=== PATIENT | male | born 1970 | race American Indian/Alaskan Native ===

== ENCOUNTER 2017-05-15 02:39 | Emergency (ER) | payer OTHER ==
[2017-05-15 02:58] VITALS: BP 141/81
--- NOTE | 2017-05-15 03:55 | XRay Report ---
FINAL REPORT EXAM: XR SHOULDER 2+V LT HISTORY: Left shoulder pain TECHNIQUE: Three views of the left shoulder were submitted. FINDINGS: The glenohumeral and AC joints appear normal. The subacromial space is normal. Soft tissues appear normal. IMPRESSION: Normal exam.
--- NOTE | 2017-05-15 03:55 | XRay Report ---
FINAL REPORT EXAM: XR SPINE CERVICAL 2-3V HISTORY: neck pain TECHNIQUE: Four views of the cervical spine were submitted. FINDINGS: The disc heights and alignment appear normal. There is endplate spurring in the mid to lower cervical spine. There is no evidence of fracture. The prevertebral soft tissues and C1-C2 articulation appear well maintained. IMPRESSION: Endplate spurring in the mid to lower cervical spine. Otherwise unremarkable exam.
--- NOTE | 2017-05-15 03:56 | XRay Report ---
FINAL REPORT EXAM: XR SPINE LUMBOSACRAL 2-3V HISTORY: lower back pain TECHNIQUE: AP and lateral views of the lumbar spine were submitted. FINDINGS: The disc heights and alignment appear normal. There is no evidence of fracture. The SI joints appear normal. The soft tissues are well maintained. IMPRESSION: Within normal limits.
--- NOTE | 2017-05-15 03:57 | XRay Report ---
FINAL REPORT EXAM: XR CHEST ROUTINE 2V HISTORY: chestpain TECHNIQUE: PA and lateral views of the chest were submitted. FINDINGS: Heart size and mediastinum appear normal. The lungs are clear. Pleural fluid is not seen. The bones and soft tissues do not show any acute changes. IMPRESSION: Negative chest.
[2017-05-15] MEDS ORDERED: TORADOL IM ONE (07:35)
[2017-05-15] MEDS ORDERED: FLEXERIL PO ONE (07:35)
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
== END 2017-05-15 08:37 | disposition home or self-care (01) ==
LOC: ED 02:39
DX: M54.5 Low back pain (principal); M54.2 Cervicalgia; R07.89 Other chest pain; M25.511 Pain in right shoulder; M25.512 Pain in left shoulder; V49.50XA Passenger injured in collision with unspecified motor vehicles in traffic accident, initial encounter; Y93.89 Activity, other specified; Y99.8 Other external cause status; Y92.488 Other paved roadways as the place of occurrence of the external cause
CPT/HCPCS: 71020; 72040; 72100; 73030; 93005; 93010; 96372; 99284; J1885

== ENCOUNTER 2021-10-08 11:47 | Emergency (ER) | payer BC ==
[2021-10-08 15:04] LABS: Basophils % (Auto) 0.4 % (0.0-1.8); Eosinophils # (Auto) 0.2 K/mm3 (0.0-0.4); Eosinophils % (Auto) 2.3 % (0.0-4.3); Hematocrit 52.8 % (35.5-45.6); Lymphocytes # (Auto) 1.4 K/mm3 (1.2-5.4); Lymphocytes % (Auto) 14.9 % (13.4-35.0); Mean Corpuscular HGB Conc 32 % (32-34); Mean Corpuscular Volume 90 fl (84-94); Monocytes # (Auto) 0.5 K/mm3 (0.0-0.8); Monocytes % (Auto) 5.6 % (0.0-7.3); Platelet Count 276 K/mm3 (140-440); Red Blood Count 5.86 M/mm3 (3.65-5.03); Red Cell Distribution Width 16.1 % (13.2-15.2)
[2021-10-08 15:30] LABS: Alanine Aminotransferase 29 units/L (7-56); BUN/Creatinine Ratio 9; Blood Urea Nitrogen 9 mg/dL (9-20); Hemolysis Index 37
--- NOTE | 2021-10-08 15:54 | Vascular Lab Report ---
DUPLEX DOPPLER LOWER EXTREMITY VEINS, LEFT INDICATION / CLINICAL INFORMATION: left leg pain and swelling. TECHNIQUE: Duplex doppler imaging was performed through the veins of the left lower extremity using v enous compression and other maneuvers. COMPARISON: None available. FINDINGS: LEFT COMMON FEMORAL VEIN: Negative. LEFT FEMORAL VEIN: Negative. LEFT POPLITEAL VEIN: Negative. LEFT CALF VEINS: Negative. ADDITIONAL FINDINGS: None. IMPRESSION: 1. No sonographic evidence for DVT in the left lower extremity. Signer Name: Deniz Tello MD Signed: 10/08/2021 3:50 PM Workstation Name: [id number]
--- NOTE | 2021-10-08 16:35 | Emergency Department Report ---
Blank Doc - Documentation Documentation: 51-year-old male that presents with left leg pain and swelling. Denies any in jury. 1- This is a initial triage assessment/medical screening only. Full assessment and work-up will be completed once the patient is in proper hospital gown, ED bed and in a private room setting. This initial assessment/diagnostic orders/clinical plan/ treatment(s) is/are subject to change based on pt's health status, clinical progression and re-assessment by fellow clinical providers in the ED. Further treatment and workup at subsequent clinical providers discretion. Patient/guardians urged not to elope from ED as their condition may be serious if not clinically assessed and managed. 2-Doppler ultrasound 3-labs The patient was evaluated in the emergency department for symptoms described in the history of present illness. He/she was evaluated in the context of the global COVID-19 pandemic, which necessitated consideration that the patient might be at risk for infection with the virus that causes COVID-19. Institutional protocols and algorithms that pertain to the evaluation of patients at risk for COVID-19 are in a state of rapid change based on information released by regulatory bodies including the CDC and federal and state organizations. These policies and algorithms were followed during the patient's care in the emergency department. Please note that these policies, procedures and recommendations changed on a rapid basis.
[2021-10-08 19:13] VITALS: BP 124/87
--- NOTE | 2021-10-08 19:24 | Emergency Department Report ---
ED Extremity Problem HPI - General Chief complaint: Extremity Injury, Lower Stated complaint: LEFT FOOT SWELLING Time Seen by Provider: 10/08/21 13:59 Source: patient Mode of arrival: Ambulatory Limitations: No Limitations - History of Present Illness Initial comments: L lower leg pain and swelling since . Denies improvement in swelling with elevation. Complaint: extremity pain, extremity swelling -: Gradual, week(s) (2) Location: left History of Same: No Severity scale (0 -10): 5 Quality: aching Consistency: constant Associated Symptoms: denies: denies other symptoms, chest pain, shortness of breath - Related Data Previous Rx's Medication Instructions Recorded Last Taken Type Cyclobenzaprine [Flexeril 10 MG 10 mg PO QHS #20 tablet 05/15/17 Unknown Rx TAB] Naproxen [Naprosyn] 500 mg PO BID #30 tablet 05/15/17 Unknown Rx Allergies Allergy/AdvReac Type Severity Reaction Status Date / Time No Known Allergies Allergy Verified 10/08/21 16:46 ED Review of Systems ROS: Stated complaint: LEFT FOOT SWELLING Other details as noted in HPI Constitutional: denies: chills, fever Eyes: denies: eye pain, eye discharge, vision change ENT: denies: ear pain, throat pain Respiratory: denies: cough, shortness of breath, wheezing Cardiovascular: denies: chest pain, palpitations Endocrine: no symptoms reported Gastrointestinal: denies: abdominal pain, nausea, diarrhea Genitourinary: denies: urgency, dysuria Musculoskeletal: denies: back pain, joint swelling, arthralgia Skin: denies: rash, lesions Neurological: denies: headache, weakness, paresthesias Psychiatric: denies: anxiety, depression Hematological/Lymphatic: denies: easy bleeding, easy bruising ED Past Medical Hx - Past Medical History Previous Medical History?: No Hx Hypertension: No - Surgical History Additional Surgical History: Right Knee surgery - Social History Smoking Status: Unknown if ever smoked Substance Use Type: None - Medications Home Medications: Home Medications Medication Instructions Recorded Confirmed Last Taken Type Cyclobenzaprine [Flexeril 10 MG 10 mg PO QHS #20 tablet 05/15/17 10/08/21 Unknown Rx TAB] Naproxen [Naprosyn] 500 mg PO BID #30 tablet 05/15/17 10/08/21 Unknown Rx ED Physical Exam - General Limitations: No Limitations General appearance: alert, in no apparent distress - Head Head exam: Present: atraumatic, normocephalic - Eye Eye exam: Present: normal appearance - ENT ENT exam: Present: mucous membranes moist - Neck Neck exam: Present: normal inspection - Respiratory Respiratory exam: Present: normal lung sounds bilaterally. Absent: respiratory distress - Cardiovascular Cardiovascular Exam: Present: regular rate, normal rhythm. Absent: systolic murmur, diastolic murmur, rubs, gallop - GI/Abdominal GI/Abdominal exam: Present: soft, normal bowel sounds - Rectal Rectal exam: Present: deferred - Extremities Exam Extremities exam: Present: normal inspection - Expanded Lower Extremity Exam Left Upper Leg exam: Present: swelling - Back Exam Back exam: Present: normal inspection - Neurological Exam Neurological exam: Present: alert, oriented X3 - Psychiatric Psychiatric exam: Present: normal affect, normal mood - Skin Skin exam: Present: warm, dry, intact, normal color. Absent: rash ED Course Vital Signs 10/08/21 10/08/21 10/08/21 13:58 16:44 19:12 Temperature 98.1 F 98.0 F 98.2 F Pulse Rate 78 76 77 Respiratory 18 20 20 Rate Blood Pressure 143/86 128/86 124/87 [Right] O2 Sat by Pulse 100 100 Oximetry ED Medical Decision Making - Lab Data Result diagrams: 10/08/21 14:38 10/08/21 14:38 Critical care attestation.: If time is entered above; I have spent that time in minutes in the direct care of this critically ill patient, excluding procedure time. ED Disposition Clinical Impression: Leg swelling, Tinea pedis Disposition: HOME / SELF CARE / HOMELESS Is pt being admited?: No Does the pt Need Aspirin: No Condition: Stable
== END 2021-10-08 20:27 | disposition home or self-care (01) ==
LOC: ED 11:47
DX: M79.662 Pain in left lower leg (principal); B35.3 Tinea pedis
CPT/HCPCS: 36415; 80053; 85025; 99284

== ENCOUNTER 2022-01-25 17:45 | Emergency (ER) | payer OTHER, BC ==
[2022-01-26] MEDS ORDERED: FLUORESCEIN 1 MG STRIP OP ONE (02:06)
[2022-01-26] MEDS ORDERED: TETRACAINE 0.5% OPHTH SOLN 4ML OU ONE (02:07)
--- NOTE | 2022-01-26 02:45 | Emergency Department Report ---
ED General Adult HPI - General Chief complaint: Eye Problems Stated complaint: FOREIGN BODY IN R EYE Time Seen by Provider: 01/26/22 02:06 Source: patient Mode of arrival: Ambulatory Limitations: No Limitations - History of Present Illness Initial comments: Patient is a 52-year-old male who presents for right eye pain burning itching states foreign body sensation since yesterday. Patient states he looked up at work while wearing safety glasses however felt particle impacted his right. Now with burning stinging the same. Patient states blurred vision and mild photophobia. There is no fevers or chills. No eye swelling clear drainage. There is erythema to right eyes. -: unknown Severity scale (0 -10): 10 - Related Data Previous Rx's Medication Instructions Recorded Last Taken Type Cyclobenzaprine [Flexeril 10 MG 10 mg PO QHS #20 tablet 05/15/17 Unknown Rx TAB] Naproxen [Naprosyn] 500 mg PO BID #30 tablet 05/15/17 Unknown Rx Terbinafine [LamiSIL At 1%] 1 applicatio TP BID #7 tube 10/08/21 Unknown Rx Ibuprofen [Motrin 800 MG tab] 800 mg PO Q8HR PRN #30 tablet 01/26/22 Unknown Rx Ketotifen Fumarate [Zaditor] 2 drops OP BID PRN #5 ml 01/26/22 Unknown Rx Polymyxin B Sulf/Trimethoprim 2 drops OP Q3H #10 ml 01/26/22 Unknown Rx [Polytrim Eye Drops] Allergies Allergy/AdvReac Type Severity Reaction Status Date / Time No Known Allergies Allergy Verified 01/25/22 18:37 ED Review of Systems ROS: Stated complaint: FOREIGN BODY IN R EYE Other details as noted in HPI Constitutional: denies: chills, fever, weakness Eyes: eye pain. denies: eye discharge, vision change ENT: denies: ear pain, throat pain, epistaxis, congestion Respiratory: denies: cough, shortness of breath, wheezing Cardiovascular: denies: chest pain, palpitations Endocrine: no symptoms reported. denies: see HPI Gastrointestinal: denies: abdominal pain Genitourinary: denies: urgency, dysuria Musculoskeletal: denies: back pain Skin: denies: rash, lesions Neurological: as per HPI. denies: headache, vertigo Psychiatric: denies: anxiety, depression Hematological/Lymphatic: denies: easy bleeding, easy bruising ED Past Medical Hx - Past Medical History Hx Hypertension: No - Surgical History Additional Surgical History: Right Knee surgery - Social History Smoking Status: Unknown if ever smoked Substance Use Type: None - Medications Home Medications: Home Medications Medication Instructions Recorded Confirmed Last Taken Type Cyclobenzaprine [Flexeril 10 MG 10 mg PO QHS #20 tablet 05/15/17 10/08/21 Unknown Rx TAB] Naproxen [Naprosyn] 500 mg PO BID #30 tablet 05/15/17 10/08/21 Unknown Rx Terbinafine [LamiSIL At 1%] 1 applicatio TP BID #7 tube 10/08/21 Unknown Rx Ibuprofen [Motrin 800 MG tab] 800 mg PO Q8HR PRN #30 tablet 01/26/22 Unknown Rx Ketotifen Fumarate [Zaditor] 2 drops OP BID PRN #5 ml 01/26/22 Unknown Rx Polymyxin B Sulf/Trimethoprim 2 drops OP Q3H #10 ml 01/26/22 Unknown Rx [Polytrim Eye Drops] ED Physical Exam - General Limitations: No Limitations General appearance: alert, in no apparent distress - Head Head exam: Present: atraumatic, normocephalic - Eye Eye exam: Present: normal appearance, PERRL, EOMI, conjunctival injection. Absent: nystagmus Pupils: Present: normal accommodation - Expanded Eye Exam Expanded Eyelids: Erythema: Bilateral Pupils: Regular, Round: Bilateral, Reactive: Bilateral Sclera/Conjunctival: Normal Inspection: Bilateral Anterior chamber: Normal Inspection: Bilateral Visual acuity (R) = 20/: 30 Visual acuity (L) = 20/: 30 With correction: No - ENT ENT exam: Present: normal orophraynx, mucous membranes moist, TM's normal bilaterally - Neck Neck exam: Present: normal inspection, full ROM. Absent: tenderness, lymphadenopathy - Respiratory Respiratory exam: Present: normal lung sounds bilaterally. Absent: respiratory distress, wheezes, stridor, chest wall tenderness - Cardiovascular Cardiovascular Exam: Present: regular rate, normal rhythm, normal heart sounds - GI/Abdominal GI/Abdominal exam: Present: soft, rebound - Rectal Rectal exam: Present: deferred - Extremities Exam Extremities exam: Present: normal inspection, full ROM. Absent: tenderness - Back Exam Back exam: Present: normal inspection, full ROM. Absent: tenderness - Neurological Exam Neurological exam: Present: alert, oriented X3, CN II-XII intact - Psychiatric Psychiatric exam: Present: normal affect, normal mood. Absent: suicidal ideation - Skin Skin exam: Present: warm, dry, intact, normal color. Absent: rash ED Course Vital Signs 01/25/22 18:34 Temperature 98.0 F Pulse Rate 74 Blood Pressure 163/91 [Right] O2 Sat by Pulse 97 Oximetry - Procedure Description Procedures done: Right eye foreign body, anesthesia with 0.1% tetracaine x2 drops. Anesthesia is achieved. Fluorescein stain. Lundberg lamp exam demonstrates small corneal abrasion at 9:00. Eye exam PERRLA EOMI conjunctival is injected. Visual acuity is 20/30 bilaterally without correction. Eyelid inverted and swept, I irrigated with 10 cc sterile saline symptoms are improved after procedure. ED Medical Decision Making - Medical Decision Making This is a corneal abrasion, I vital signs noted normal. Symptoms are improved after irrigation with 10 cc sterile saline, plan treat for corneal abrasion, patient DC with prescriptions, follow-up with ophthalmology in a.m. patient verbalized agreement and understanding of discharge plan. Patient DC'd home in stable condition at this time. Critical care attestation.: If time is entered above; I have spent that time in minutes in the direct care of this critically ill patient, excluding procedure time. ED Disposition Clinical Impression: Corneal abrasion, right Qualifiers: Encounter type: initial encounter Qualified Code(s): S05.01XA - Injury of conjunctiva and corneal abrasion without foreign body, right eye, initial encounter Disposition: HOME / SELF CARE / HOMELESS Is pt being admited?: No Does the pt Need Aspirin: No Condition: Undetermined Additional Instructions: Take medications as prescribed, follow-up with eye doctor in AM. Return to emergency department should symptoms worsen. Prescriptions: Ibuprofen [Motrin 800 MG tab] 800 mg PO Q8HR PRN #30 tablet PRN Reason: pain Polymyxin B Sulf/Trimethoprim [Polytrim Eye Drops] 2 drops OP Q3H #10 ml Ketotifen Fumarate [Zaditor] 2 drops OP BID PRN #5 ml PRN Reason: pain Referrals: ELIOT SANTANA MD [Staff Physician] - [facility] Forms: Work/School Release Form(ED) Time of Disposition: 03:16
[2022-01-26 03:30] VITALS: BP 156/82
== END 2022-01-26 03:32 | disposition home or self-care (01) ==
LOC: ED 17:45
DX: S05.01XA Injury of conjunctiva and corneal abrasion without foreign body, right eye, initial encounter (principal); X58.XXXA Exposure to other specified factors, initial encounter; Y93.89 Activity, other specified; Y92.89 Other specified places as the place of occurrence of the external cause; Y99.8 Other external cause status
CPT/HCPCS: 99282; 99284